=== PATIENT | female | born 1985 | race Caucasian/White ===

== ENCOUNTER 2016-11-12 16:56 | Emergency (ER) | payer MEDICAID ==
[~2016-11-12] VITALS: Ht 152.4 cm; Wt 51.0 kg
[2016-11-12 16:59] VITALS: Ht 152.4 cm; Wt 51.0 kg
--- NOTE | 2016-11-12 19:47 | ERD ---
ER Documentation Chief Complaint Date/Time DATE: 11/12/16 TIME: 19:45 Chief Complaint RIGHT ANKLE PAIN HPI Is a 31-year-old female who presents to the emergency department today complaining of right ankle pain after sustaining an injury today while playing soccer. Patient states he was running when she twisted her ankle. States that she had a tibia fracture possibly 15 years ago. She has not taken any medication for the pain. Denies any fevers or chills. ROS All systems reviewed and are negative except as per history of present illness. Medications Home Meds Active Scripts Acetaminophen* (Tylophen*) 500 Mg Capsule, 1 CAP PO Q6H Y for PAIN AND OR ELEVATED TEMP, #30 CAP Prov:ENEDELIA SPARKS PA-C 11/12/16 Naproxen* (Naprosyn*) 500 Mg Tablet, 500 MG PO BID Y for PAIN AND/OR INFLAMMATION, #30 TAB Prov:ENEDELIA SPARKS PA-C 11/12/16 Tramadol HCl (Tramadol HCl) 50 Mg Tablet, 50 MG PO Q4 Y for PAIN, #20 TAB Prov:ENEDELIA SPARKS PA-C 11/12/16 PMhx/Soc Medical and Surgical Hx: pt denies Medical Hx, pt denies Surgical Hx Hx Alcohol Use: No Hx Substance Use: No Hx Tobacco Use: No Physical Exam Vitals Vital Signs Date Time Temp Pulse Resp B/P Pulse Ox O2 Delivery O2 Flow Rate FiO2 11/12/16 16:59 98.1 70 20 123/70 99 Physical Exam Const: Sitting in wheelchair, no acute distress Head: Atraumatic Eyes: Normal Conjunctiva ENT: Normal External Ears, Nose and Mouth. Neck: Full range of motion..~ No meningismus. Resp: Clear to auscultation bilaterally Cardio: Regular rate and rhythm, no murmurs Skin: No petechiae or rashes MSk: Right ankle with no obvious deformity. Mild effusion over lateral aspect of ankle. There is palpation lateral aspect of ankle and navicular no ecchymosis. Unable to assess range of motion secondary to pain. Pulses 2+. Distal neurovascularly intact Neur: Awake and alert Psych: Normal Mood and Affect Results 24 hrs Current Medications Medications (Trade) Dose Ordered Sig/John Route PRN Reason Start Time Stop Time Status Last Admin Dose Admin Acetaminophen/ Hydrocodone Bitart (Hitchcock (5/325)) 1 tab ONCE ONCE PO 11/12/16 20:00 11/12/16 20:01 DC 11/12/16 19:48 DIAGNOSTIC IMAGING REPORT Patient: JOHNNIE WOODS : 1985 Age: 31 Sex: F MR #: [id number] DOS: 11/12/16 0000 Ordering MD: ENEDELIA SPARKS PA-C Location: [facility] Room/Bed: PROCEDURE: XR Right Ankle. CLINICAL INDICATION: Injury. Pain. TECHNIQUE: Three views of the right ankle were performed. COMPARISON: None. FINDINGS: There is lateral malleolar subcutaneous soft tissue swelling. There is no underlying fracture. Joint relationships are maintained. Ankle mortise is intact. Bone mineralization is within normal limits. IMPRESSION: Lateral malleolar subcutaneous soft tissue swelling without underlying fracture. RPTAT: HMVK .Karthik Murry MD, MD Date Time Electronically viewed and signed by .Karthik Murry MD, MD on 11/12/2016 22:39 .K/ CC: ENEDELIA SPARKS PA-C DIAGNOSTIC IMAGING REPORT Patient: JOHNNIE WOODS : 1985 Age: 31 Sex: F MR #: [id number] DOS: 11/12/16 0000 Ordering MD: ENEDELIA SPARKS PA-C Location: [facility] Room/Bed: PROCEDURE: XR Right Foot. CLINICAL INDICATION: Pain. TECHNIQUE: AP, lateral and oblique views of the right foot was obtained. The images were reviewed on a PACS workstation. COMPARISON: None. FINDINGS: There are no fractures. Joint relationships are maintained. Bone mineralization is within normal limits. Soft tissues are unremarkable. IMPRESSION: No acute abnormality. RPTAT: HMVK .Karthik Murry MD, MD Date Time Electronically viewed and signed by .Karthik Murry MD, MD on 11/12/2016 22:40 .K/ CC: ENEDELIA SPARKS PA-C Procedures/MDM This a 31-year-old female who presents the emergency department today complaining of right ankle and foot pain after twisting her ankle today while playing soccer. Patient did have a old tibia fracture approximately 15 years ago. Given that there was trauma and there was swelling and patient is unable to ambulate I did obtain images. Per the radiology report images of the right ankle show lateral malleolar subcutaneous soft tissue swelling without underlying fracture. Ankle mortise is intact. Images of the right foot are unremarkable. There is no acute abnormality. No acute fracture or dislocation. Patient symptoms at this time is consistent with strain versus sprain versus contusion. Patient was given Hitchcock here in the emergency department. I will give her a short course of tramadol, Naprosyn, Tylenol for home. Patient was also given an Jt wrap was given crutches to help ambulate. At this time the patient is stable for discharge and outpatient management. Patient should follow up with their PCP in the next 1-2 days. They may return to the emergency department sooner for any persistent or worsening of symptoms. Patient understood and agreed with the plan. Departure Diagnosis: Primary Impression: Ankle injury Encounter type: initial encounter Laterality: right Qualified Code: S99.911A - Ankle injury, right, initial encounter Condition: Fair ENEDELIA SPARKS PA-C Nov 12, 2016 19:47
[2016-11-12] MEDS ORDERED: HYDROCODONE/APAP (5/325) TAB PO ONE (20:00)
--- NOTE | 2016-11-12 22:40 | RADRPT ---
PROCEDURE: XR Right Ankle. CLINICAL INDICATION: Injury. Pain. TECHNIQUE: Three views of the right ankle were performed. COMPARISON: None. FINDINGS: There is lateral malleolar subcutaneous soft tissue swelling. There is no underlying fracture. Aliyah nt relationships are maintained. Ankle mortise is intact. Bone mineralization is within normal snell its. IMPRESSION: Lateral malleolar subcutaneous soft tissue swelling without underlying fracture. RPTAT: HMVK .Karthik Murry MD, MD Date Time Electronically viewed and signed by .Karthik Murry MD, on 11/12/2016 22:39 .K/
--- NOTE | 2016-11-12 22:40 | RADRPT ---
PROCEDURE: XR Right Foot. CLINICAL INDICATION: Pain. TECHNIQUE: AP, lateral and oblique views of the right foot was obtained. The images were reviewed on a PACS workstation. COMPARISON: None. FINDINGS: There are no fractures. Joint relationships are maintained. Bone mineralization is within normal l imits. Soft tissues are unremarkable. IMPRESSION: No acute abnormality. RPTAT: HMVK .Karthik Murry MD, MD Date Time Electronically viewed and signed by .Karthik Murry MD, on 11/12/2016 22:40 .K/
[2016-11-12] MEDS ORDERED: TRAM50TA2 PO (22:45)
[2016-11-12] MEDS ORDERED: ACET500C5 PO (22:46)
[2016-11-12] MEDS ORDERED: NAPR-260 PO (22:46)
== END 2016-11-12 22:50 | disposition home or self-care (01) ==
LOC: FTE 16:56
DX: S99.911A Unspecified injury of right ankle, initial encounter (principal); X50.1XXA Overexertion from prolonged static or awkward postures, initial encounter; Y92.9 Unspecified place or not applicable
CPT/HCPCS: 73610; 73630; Z7502; Z7610